=== PATIENT | female | born 1980 | race Caucasian/White ===

== ENCOUNTER 2024-09-01 14:04 | Observation (INO) | payer BC ==
[~2024-09-01] VITALS: Ht 167.6 cm; Wt 72.6 kg
[2024-09-01 14:05] VITALS: TEMP 97.3
[2024-09-01 14:40] LABS: BASOPHILS # (AUTO) 0.1 (0.0-0.1); BASOPHILS % 0.7 % (0.0-1.0); EOSINOPHILS # (AUTO) 0.2 (0.0-0.4); EOSINOPHILS % 2.2 % (0.0-6.0); HEMATOCRIT 41.4 % (34.2-44.1); HEMOGLOBIN 13.9 g/dL (12.0-16.0); LYMPHOCYTES # (AUTO) 2.1 (1.0-3.2); LYMPHOCYTES % 31.3 % (18.0-39.1); MEAN CORPUSCULAR HEMOGLOBIN 32.9 pg (28-32); MEAN CORPUSCULAR HGB CONC 33.6 g/dL (31-35); MEAN CORPUSCULAR VOLUME 98.1 fL (81-99); MONOCYTES # (AUTO) 0.7 (0.2-0.8); NEUTROPHILS # (AUTO) 3.8 (2.1-6.9); NEUTROPHILS % 55.5 % (38.7-80.0); PLATELET COUNT 265 x10e3/uL (140-360); RED BLOOD COUNT 4.22 x10e6/uL (3.6-5.1); RED CELL DISTRIBUTION WIDTH 12.1 % (11.7-14.4); WHITE BLOOD COUNT 6.78 x10e3/uL (4.8-10.8)
[2024-09-01 14:53] LABS: INR 0.86; PROTHROMBIN TIME 12.3 seconds (11.9-14.5)
[2024-09-01] MEDS: SODIUM CHLORIDE 0.9% 1000ML 1,000 ML IV STA (14:58)
[2024-09-01 15:00] LABS: ALANINE AMINOTRANSFERASE 19 IU/L (0-55); ALBUMIN/GLOBULIN RATIO 1.4 (0.8-2.0); ALKALINE PHOSPHATASE 108 IU/L (40-150); ANION GAP 13.5 mmol/L (8-16); BILIRUBIN,TOTAL 0.2 mg/dL (0.2-1.2); BLOOD UREA NITROGEN 15 mg/dL (7-26); BUN/CREATININE RATIO 13 (6-25); CALCIUM 8.8 mg/dL (8.4-10.2); CARBON DIOXIDE 24 mmol/L (22-29); CHLORIDE 108 mmol/L (98-107); CREATINE KINASE 105 IU/L (29-168); CREATININE, SERUM 1.16 mg/dL (0.57-1.11); EST GLOMERULAR FILTRATION RATE 59 ML/MIN (>=60); GLUCOSE 110 mg/dL (74-118); MAGNESIUM 1.9 MG/DL (1.3-2.1); POTASSIUM 4.5 mmol/L (3.5-5.1); SODIUM 141 mmol/L (136-145); TOTAL PROTEIN 6.9 g/dL (6.5-8.1)
[2024-09-01 15:06] LABS: TROPONIN I 0.024 ng/mL (0-0.300)
[2024-09-01] MEDS ORDERED: ONDANSETRON HCL INJ 2MG/ML 2ML 2 MG/ML VIAL IV PRN (16:00)
[2024-09-01] MEDS ORDERED: HYDRALAZINE HCL 20 MG/ML VIAL IV PRN (16:00)
[2024-09-01] MEDS ORDERED: METOPROLOL TARTRATE 25 MG TAB PO SCH (16:00)
[2024-09-01] MEDS ORDERED: Morphine 2mg Syringe 2 MG/ML SYR IV PRN (16:00)
[2024-09-01 17:30] VITALS: PULSE 62; RESP 18
[2024-09-01 20:00] VITALS: BP 114/86; PULSE 54; RESP 18; TEMP 98.1; O2SAT 98
[2024-09-01 20:37] VITALS: BP 148/96; PULSE 54; RESP 18; TEMP 98.1; O2SAT 98
[2024-09-01 20:39] LABS: TROPONIN I 0.039 ng/mL (0-0.300)
[2024-09-01] MEDS: SUCRALFATE 1 GM/10 ML SUSP PO ONE (21:21)
[2024-09-01] MEDS: NICOTINE 14 MG/EA PATCH TOP ONE (21:21)
[2024-09-02] VITALS: BP 134/79; PULSE 76; RESP 18; TEMP 97.6; O2SAT 100
[2024-09-02] MEDS ORDERED: ROSUVASTATIN CA10 MG PO (03:52)
[2024-09-02] MEDS ORDERED: LOSARTAN POTASS50 MG PO (03:52)
[2024-09-02 04:00] VITALS: BP 140/79; PULSE 60; RESP 18; TEMP 97.8; O2SAT 98
[2024-09-02 06:32] LABS: BASOPHILS # (AUTO) 0.1 (0.0-0.1); BASOPHILS % 0.6 % (0.0-1.0); EOSINOPHILS # (AUTO) 0.2 (0.0-0.4); EOSINOPHILS % 1.7 % (0.0-6.0); HEMATOCRIT 41.2 % (34.2-44.1); HEMOGLOBIN 13.9 g/dL (12.0-16.0); LYMPHOCYTES # (AUTO) 2.2 (1.0-3.2); LYMPHOCYTES % 22.3 % (18.0-39.1); MEAN CORPUSCULAR HEMOGLOBIN 33.3 pg (28-32); MEAN CORPUSCULAR HGB CONC 33.7 g/dL (31-35); MEAN CORPUSCULAR VOLUME 98.6 fL (81-99); MONOCYTES # (AUTO) 0.7 (0.2-0.8); MONOCYTES % 7.2 % (4.4-11.3); NEUTROPHILS # (AUTO) 6.8 (2.1-6.9); NEUTROPHILS % 67.9 % (38.7-80.0); PLATELET COUNT 245 x10e3/uL (140-360); RED BLOOD COUNT 4.18 x10e6/uL (3.6-5.1); RED CELL DISTRIBUTION WIDTH 12.2 % (11.7-14.4); WHITE BLOOD COUNT 9.99 x10e3/uL (4.8-10.8)
[2024-09-02 06:56] LABS: ALBUMIN 3.5 g/dL (3.5-5.0); ALBUMIN/GLOBULIN RATIO 1.3 (0.8-2.0); ANION GAP 12.9 mmol/L (8-16); BILIRUBIN,TOTAL 0.3 mg/dL (0.2-1.2); CALCIUM 8.5 mg/dL (8.4-10.2); CHOL/HDL RATIO 6.4 (3.0-3.6); CREATININE, SERUM 0.68 mg/dL (0.57-1.11); POTASSIUM 3.9 mmol/L (3.5-5.1); TOTAL PROTEIN 6.2 g/dL (6.5-8.1)
[2024-09-02 08:00] VITALS: BP 119/74; PULSE 70; RESP 17; TEMP 97.8; O2SAT 100
[2024-09-02 09:55] LABS: TROPONIN I 0.02 ng/mL (0-0.300)
[2024-09-02] MEDS: LOSARTAN POTASSIUM 25 MG TAB PO SCH (09:56)
[2024-09-02] MEDS: PANTOPRAZOLE SOD 40 MG TABEC PO SCH (09:56)
[2024-09-02] MEDS: ASPIRIN 81 MG ENTERIC COATED PO SCH (09:56)
[2024-09-02 11:00] VITALS: BP 143/85; PULSE 63; RESP 18; TEMP 98; O2SAT 99
[2024-09-02] MEDS ORDERED: ASPIRIN EC81 MG PO (11:16)
[2024-09-02] MEDS ORDERED: ONDANSETRON ODT4 MG PO (11:16)
[2024-09-02] MEDS ORDERED: PROTONIX20 MG PO (11:16)
[2024-09-02] MEDS ORDERED: NICOTINE 14 MG/EA PATCH TOP SCH (20:00)
[2024-09-02] MEDS ORDERED: CRESTOR 10MG PO SCH (21:00)
== END 2024-09-02 12:30 | disposition home or self-care (01) ==
LOC: ER 14:13 → ERHOLD 16:24 → MED/SURG2 18:11
PROVIDERS: ADMIT Internal Medicine; ATTEND Internal Medicine
DX: R07.89 Other chest pain (principal); I10 Essential (primary) hypertension; E78.5 Hyperlipidemia, unspecified; K21.9 Gastro-esophageal reflux disease without esophagitis; J06.9 Acute upper respiratory infection, unspecified; Z72.0 Tobacco use
CPT/HCPCS: 36415 ×2; 71045; 80053 ×2; 80061; 82550 ×2; 83735; 84484 ×2; 84702; 85025 ×2; 85610; 85730; 93005; 99284; G0378 ×2; J2470; J7030; S0164